=== PATIENT | male | born 1970 | race Caucasian/White ===

== ENCOUNTER → 2016-07-07 | Day surgery (SDC) | payer OTHER ==
[~2016-07-07] MED LIST: CIAL5TAB PO; IBUP600T26 PO; LACTATED RINGER'S 1000 ML INJ 1,000 ML ONE; PROPOFOL 200 MG/20 ML AMP IV ONE
--- NOTE | 2016-07-07 14:26 | GIPROC ---
[facility] [address] [facility], [address] EGD PROCEDURE REPORT EXAM DATE: 07/07/2016 PATIENT NAME: Micheal Alonzo MR #: [id number] BIRTHDATE: 1970 ATTENDING: Debbie Campo MD ORDER #: [id number] SURGICAL GARMENT ASSEMBLER: Naomi Carcamo RN STATUS: outpatient INDICATIONS: The patient is a 46 yr old male here for an EGD due to dyspepsia and heartburn PROCEDURE PERFORMED: EGD w/ biopsy MEDICATIONS: None and Per Anesthesia. TOPICAL ANESTHETIC: none CONSENT: The patient understands the risks and benefits of the procedure and understands that these risks include, but are not limited to: sedation, allergic reaction, infection, perforation and/or bleeding. Alternative means of evaluation and treatment include, among others: physical exam, x-rays, and/or surgical intervention. The patient elects to proceed with this endoscopic procedure. medical equipment was checked for proper function. Hand hygiene and appropriate measures for infection prevention was taken. After the risks, benefits and alternatives of the procedure were thoroughly explained, Informed consent was verified, confirmed and timeout was successfully executed by the treatment team. The patient was anesthetized with topical anesthesia and the EG-2990i ([id number]) and EC-3490Li ([id number]) endoscope was introduced through the mouth and advanced to the second portion of the duodenum. Retroflexed views revealed no abnormalities The gastroscope was then slowly withdrawn and removed. Gastritis Bx from antrum. Esophagitis grade B Bx from EG junction. The endoscopy was otherwise normal. ADVERSE EVENTS: There were no complications. IMPRESSIONS: 1. Gastritis Bx from antrum 2. Esophagitis grade B Bx from EG junction 3. Normal endoscopy otherwise 4. Retroflexed views revealed no abnormalities RECOMMENDATIONS: 1. Await biopsy results. Biopsy results will not be ready for 7-10 days. If you don't hear from us in two weeks, call our office for biopsy results. 2. Anti-reflux regimen 3. Protonix 40mg Q AM 4. Avoid NSAIDS PATIENT CONDITION: stable DISPOSITION: Home REPEAT EXAM: Return as needed for EGD Debbie Campo MD eSigned: Debbie Campo MD 07/07/2016 2:26 PM cc: kayla knapp M.D.
== END | disposition home or self-care (01) ==
LOC: ESDC 11:59
PROVIDERS: ATTEND Hospitalist
DX: R10.13 Epigastric pain (principal); K29.70 Gastritis, unspecified, without bleeding; K20.9 Esophagitis, unspecified
CPT/HCPCS: 00740; 43239; 88305; 88312; J3010; J7120

== ENCOUNTER 2016-10-14 16:02 | Inpatient (IN) | payer OTHER ==
[~2016-10-14] VITALS: Ht 180.3 cm; Wt 163.2 kg
[2016-10-17] MEDS ORDERED: PROT40TA PO (11:36)
[2016-10-20] MEDS ORDERED: INSULIN HUMAN REGULAR 1,000 UNITS/10 ML VIAL SQ PRN (05:30)
[2016-10-20] MEDS ORDERED: SCOPOLAMINE 1.5 MG PATCH T-DERMAL SCH (05:30)
[2016-10-20] MEDS ORDERED: ONDANSETRON HCL 4 MG/2 ML VIAL IV PUSH SCH (05:30)
[2016-10-20] MEDS ORDERED: LACTATED RINGER'S 1000 ML IV PRN (05:30)
[2016-10-20] MEDS ORDERED: POVIDONE IODINE 5% (ANTISEPSIS KIT) 4 APPLICATIONS EACH NARE PRN (05:30)
[2016-10-20] MEDS ORDERED: ceFAZolin 3,000 MG/NS 100 ML (if >120 kg) IV SCH ×2 (05:30)
[2016-10-20] MEDS ORDERED: SODIUM CHLORID 0.9% 500 ML IV PRN (05:30)
[2016-10-20] MEDS ORDERED: CHLORHEXIDINE GLUCONATE 2 % 1 PACK (2 CLOTHS) TOPICAL PRN (05:30)
[2016-10-20] MEDS ORDERED: APREPITANT 40 MG CAP PO SCH (05:30)
[2016-10-20] MEDS ORDERED: METOPROLOL TARTRATE 25 MG TAB PO PRN (05:30)
[2016-10-20] MEDS ORDERED: metroNIDAZOLE 500 MG INJ 100 ML IV SCH (05:30)
[2016-10-20] MEDS ORDERED: ACETAMINOPHEN 1000 MG/100 ML VIAL IV SCH (05:30)
[2016-10-20 06:29] VITALS: BP 136/82; PULSE 103; RESP 18; TEMP 98.8; O2SAT 97
[2016-10-20] MEDS ORDERED: ceFAZolin 2 GM PREMIX 50 ML ONE ×2 (08:47→13:02)
[2016-10-20] MEDS ORDERED: MIDAZOLAM HCL 2 MG/2 ML VIAL ONE (08:51)
[2016-10-20] MEDS ORDERED: BUPIVACAINE/EPINEPHRINE 0.25% 50 ML VIAL INFIL ONE (09:27)
[2016-10-20] MEDS ORDERED: METHYLENE BLUE 100 MG/10 ML VIAL NG ONE (09:50)
[2016-10-20] MEDS ORDERED: LACTATED RINGER'S 1000 ML INJ 2,000 ML IV ONE (12:00)
[2016-10-20] MEDS ORDERED: NEOSTIGMINE 3 MG/3 ML SYR IV ONE (12:00)
[2016-10-20] MEDS ORDERED: PROPOFOL 200 MG/20 ML AMP IV ONE (12:00)
[2016-10-20] MEDS ORDERED: ePHEDrine/NS 25 MG/5 ML SYR IV ONE (12:00)
[2016-10-20] MEDS ORDERED: PHENYLEPH/NS 1000 MCG/10 ML SYR IV ONE (12:00)
[2016-10-20] MEDS: D5-1/2 NS + KCL 20 MEQ INJ 1,000 ML IV SCH ×2 (13:58→20:18)
[2016-10-20] MEDS ORDERED: diphenhydrAMINE HCL ELIXIR 12.5 MG/5 ML CUP PO PRN (14:00)
[2016-10-20] MEDS ORDERED: SODIUM CHLORIDE 0.9% FLUSH 10 ML FLUSH IV FLUSH PRN (14:00)
[2016-10-20] MEDS ORDERED: diphenhydrAMINE HCL 50 MG/ML VIAL IV PRN (14:00)
[2016-10-20] MEDS ORDERED: Post-op Orders (for Pharmacy) MISC OTHER ONE (14:00)
[2016-10-20] MEDS ORDERED: ACETAMINOPHEN 325MG/HYDROcodone 7.5MG/15ML UDC PO PRN (14:00)
[2016-10-20] MEDS ORDERED: ENALAPRILAT 1.25 MG/ML VIAL IV PUSH PRN (14:00)
[2016-10-20] MEDS ORDERED: DO NOT ADM ANY ANTICOAGULANT DRUGS PRN (14:45)
[2016-10-20] MEDS ORDERED: fentaNYL CITRATE 250 MCG/5 ML AMP ONE (14:54)
[2016-10-20] MEDS ORDERED: MORPHINE SULFATE 4 MG/ML INJ ONE (14:55)
[2016-10-20] MEDS ORDERED: *ONDANSETRON 4 MG VIAL PERIprocedural Use ONLY ONE (15:07)
[2016-10-20] MEDS ORDERED: *morphine SULFATE 8 MG/ML PERIprocedure ONLY ONE (15:28)
[2016-10-20] MEDS: METOCLOPRAMIDE HCL 10 MG/2 ML VIAL IV PUSH SCH ×2 (15:45→20:18)
[2016-10-20] MEDS: metroNIDAZOLE 500 MG INJ 100 ML IV SCH ×2 (15:54→23:23)
[2016-10-20] MEDS: RESP: ALBUTEROL 2.5 MG/3 ML NEB (SCH) INH ×2 (15:54→19:46)
[2016-10-20 16:00] VITALS: BP 129/60; PULSE 110; RESP 15; TEMP 96.5; O2SAT 96
[2016-10-20] MEDS ORDERED: NALOXONE HCL 0.4 MG/ML AMP IV PRN (17:15)
[2016-10-20 17:58] VITALS: RESP 16
[2016-10-20] MEDS: MORPHINE SULFATE 30 MG/30 ML PCA IV SCH ×2 (17:58→23:27)
[2016-10-20] MEDS: ENOXAPARIN SODIUM 40 MG/0.4 ML SYRINGE SQ SCH (18:09)
[2016-10-20 19:46] VITALS: O2SAT 96
[2016-10-20 20:00] VITALS: BP 122/69; PULSE 112; RESP 20; TEMP 96.8; O2SAT 93
[2016-10-20] MEDS: SODIUM CHLORIDE 0.9% FLUSH 10 ML FLUSH IV FLUSH SCH (20:17)
[2016-10-20] MEDS: PCA - TOTAL MG MORPHINE DELIVERED PER SHIFT SCH (21:32)
[2016-10-21] VITALS (12 sets, daily range): BP systolic 115–121; BP diastolic 59–72; PULSE 92–110; RESP 16–19; TEMP 96.1–98.7; O2SAT 92–97
[2016-10-21] MEDS: RESP: ALBUTEROL 2.5 MG/3 ML NEB (SCH) INH ×6 (00:44→21:41)
[2016-10-21] MEDS: D5-1/2 NS + KCL 20 MEQ INJ 1,000 ML IV SCH ×3 (04:10→22:25)
[2016-10-21] MEDS: METOCLOPRAMIDE HCL 10 MG/2 ML VIAL IV PUSH SCH ×2 (04:10→08:21)
[2016-10-21] MEDS: PCA - TOTAL MG MORPHINE DELIVERED PER SHIFT SCH ×3 (06:00→22:00)
[2016-10-21 07:01] LABS: AUTOMATED NEUTROPHIL # 6.5 TH/MM3 (1.8-7.7); BASOPHIL % 0.1 % (0.0-2.0); EOSINOPHIL % 0.1 % (0.0-4.0); HEMATOCRIT 39.1 % (39.0-51.0); HEMO FLAGS DIFF FINAL; LYMPH % 8.3 % (9.0-44.0); LYMPHOCYTE # 0.6 TH/MM3 (1.0-4.8); MEAN CORPUSCULAR HGB CONC 34.5 % (32.0-36.0); MONO % 6.6 % (0.0-8.0); NEUT % 84.9 % (16.0-70.0); PLATELET COUNT 163 TH/MM3 (150-450); RED BLOOD COUNT 4.65 MIL/MM3 (4.50-5.90); RED CELL DISTRIBUTION WIDTH 14.6 % (11.6-17.2); WHITE BLOOD COUNT 7.6 TH/MM3 (4.0-11.0)
[2016-10-21 07:23] LABS: BICARBONATE 25.8 MEQ/L (21.0-32.0); MAGNESIUM 2.1 MG/DL (1.5-2.5); POTASSIUM 3.7 MEQ/L (3.5-5.1)
[2016-10-21] MEDS: SODIUM CHLORIDE 0.9% FLUSH 10 ML FLUSH IV FLUSH SCH ×2 (08:05→21:00)
[2016-10-21] MEDS: metroNIDAZOLE 500 MG INJ 100 ML IV SCH (08:21)
[2016-10-21] MEDS: PANTOPRAZOLE SOD 40 MG DELAYED RELEASE TAB PO SCH (08:21)
[2016-10-21] MEDS: MORPHINE SULFATE 30 MG/30 ML PCA IV SCH ×2 (08:31→19:29)
--- NOTE | 2016-10-21 09:24 | HHI.PR ---
Subjective Subjective Notes 46yo male POD#1 Duodenal switch. Sitting up in chair in no acute distress. Voices no GI complaints Objective Vitals/I&O Vital Signs Date Time Temp Pulse Resp B/P Pulse Ox O2 Delivery O2 Flow Rate FiO2 10/21/16 08:31 18 10/21/16 08:00 98.7 98 117/64 92 10/21/16 07:36 Nasal Cannula 3.00 10/21/16 04:15 21 Labs Laboratory Tests Test 10/21/16 06:33 White Blood Count 7.6 Red Blood Count 4.65 Hemoglobin 13.5 Hematocrit 39.1 Mean Corpuscular Volume 84.0 Mean Corpuscular Hemoglobin 29.0 Mean Corpuscular Hemoglobin 34.5 Concent Red Cell Distribution Width 14.6 Platelet Count 163 Mean Platelet Volume 9.7 Neutrophils (%) (Auto) 84.9 Lymphocytes (%) (Auto) 8.3 Monocytes (%) (Auto) 6.6 Eosinophils (%) (Auto) 0.1 Basophils (%) (Auto) 0.1 Neutrophils # (Auto) 6.5 Lymphocytes # (Auto) 0.6 Monocytes # (Auto) 0.5 Eosinophils # (Auto) 0.0 Basophils # (Auto) 0.0 CBC Comment DIFF FINAL Differential Comment Sodium Level 136 Potassium Level 3.7 Chloride Level 103 Carbon Dioxide Level 25.8 Anion Gap 7 Blood Urea Nitrogen 6 Creatinine 0.87 Estimat Glomerular Filtration 95 Rate Random Glucose 130 Calcium Level 7.9 Magnesium Level 2.1 Cardiovascular: Regular Lungs: Clear Abdomen: Post-op tenderness Extremities: Perfused Wound Wound : Wound Location: Abdomen Appearance: Clean & Dry (AKANKSHA drain with small amount of serosanguinous drainage) A/P Assessment and Plan D/C hughes Ok for ice chips for now. Continue with frequent ambulation Discharge Planning Depending on hospital course, may go home tomorrow Kiera Gallegos Oct 21, 2016 09:24
[2016-10-21 12:29] LABS: CALCIUM-PROTEIN CORRECTED 8.3 MG/DL (8.5-10.1)
[2016-10-21] MEDS: ENOXAPARIN SODIUM 40 MG/0.4 ML SYRINGE SQ SCH (17:04)
[2016-10-22] VITALS (10 sets, daily range): BP systolic 102–121; BP diastolic 59–70; PULSE 77–111; RESP 16–20; TEMP 95.5–99.8; O2SAT 92–100
[2016-10-22] MEDS: RESP: ALBUTEROL 2.5 MG/3 ML NEB (SCH) INH ×4 (00:24→12:57)
[2016-10-22] MEDS: PCA - TOTAL MG MORPHINE DELIVERED PER SHIFT SCH ×2 (06:00→14:00)
[2016-10-22] MEDS: D5-1/2 NS + KCL 20 MEQ INJ 1,000 ML IV SCH ×3 (06:53→20:05)
[2016-10-22] MEDS: MORPHINE SULFATE 30 MG/30 ML PCA IV SCH (07:12)
[2016-10-22] MEDS: SODIUM CHLORIDE 0.9% FLUSH 10 ML FLUSH IV FLUSH SCH ×2 (09:00→20:05)
[2016-10-22] MEDS: PANTOPRAZOLE SOD 40 MG DELAYED RELEASE TAB PO SCH (09:01)
[2016-10-22 11:53] LABS: AUTOMATED NEUTROPHIL # 6.1 TH/MM3 (1.8-7.7); BASOPHIL % 0.2 % (0.0-2.0); EOSINOPHIL % 0.4 % (0.0-4.0); HEMO FLAGS DIFF FINAL; LYMPH % 8.7 % (9.0-44.0); LYMPHOCYTE # 0.6 TH/MM3 (1.0-4.8); MEAN CELL VOLUME 84.8 FL (80.0-100.0); MEAN CORPUSCULAR HEMOGLOBIN 28.9 PG (27.0-34.0); MEAN CORPUSCULAR HGB CONC 34.1 % (32.0-36.0); MONO % 7.9 % (0.0-8.0); NEUT % 82.8 % (16.0-70.0); PLATELET COUNT 133 TH/MM3 (150-450); RED BLOOD COUNT 4.36 MIL/MM3 (4.50-5.90); RED CELL DISTRIBUTION WIDTH 14.6 % (11.6-17.2); WHITE BLOOD COUNT 7.4 TH/MM3 (4.0-11.0)
[2016-10-22 12:19] LABS: BICARBONATE 25.3 MEQ/L (21.0-32.0); POTASSIUM 4.2 MEQ/L (3.5-5.1)
[2016-10-22] MEDS: ONDANSETRON HCL 4 MG/2 ML VIAL IV PRN (13:40)
--- NOTE | 2016-10-22 16:49 | HHI.PR ---
Subjective Subjective Notes Pt comfortable no cp no sob no N/V Objective Vitals/I&O Vital Signs Date Time Temp Pulse Resp B/P Pulse Ox O2 Delivery O2 Flow Rate FiO2 10/22/16 16:00 97.0 87 16 102/64 96 10/22/16 10:04 21 10/21/16 07:36 Nasal Cannula 3.00 Labs Laboratory Tests Test 10/22/16 10:48 White Blood Count 7.4 Red Blood Count 4.36 Hemoglobin 12.6 Hematocrit 37.0 Mean Corpuscular Volume 84.8 Mean Corpuscular Hemoglobin 28.9 Mean Corpuscular Hemoglobin 34.1 Concent Red Cell Distribution Width 14.6 Platelet Count 133 Mean Platelet Volume 10.6 Neutrophils (%) (Auto) 82.8 Lymphocytes (%) (Auto) 8.7 Monocytes (%) (Auto) 7.9 Eosinophils (%) (Auto) 0.4 Basophils (%) (Auto) 0.2 Neutrophils # (Auto) 6.1 Lymphocytes # (Auto) 0.6 Monocytes # (Auto) 0.6 Eosinophils # (Auto) 0.0 Basophils # (Auto) 0.0 CBC Comment DIFF FINAL Differential Comment Sodium Level 138 Potassium Level 4.2 Chloride Level 105 Carbon Dioxide Level 25.3 Anion Gap 8 Blood Urea Nitrogen 4 Creatinine 0.77 Estimat Glomerular Filtration 110 Rate Random Glucose 104 Calcium Level 8.2 Lungs: Clear Abdomen: Post-op tenderness Extremities: Perfused Narrative Exam taina serosang Wound Wound : Wound Location: Abdomen Appearance: Clean & Dry A/P Assessment and Plan PT S/P Lap DS Doing well Phase 1 diet started ambulate in hallway Possible D/C home tomorrow Nilton Downing MD Oct 22, 2016 16:49
[2016-10-22] MEDS: ENOXAPARIN SODIUM 40 MG/0.4 ML SYRINGE SQ SCH (17:44)
[2016-10-22] MEDS: METOCLOPRAMIDE HCL 10 MG/2 ML VIAL IV PUSH PRN (17:53)
[2016-10-22] MEDS: ACETAMINOPHEN 325MG/HYDROcodone 7.5MG/15ML UDC PO PRN (20:01)
[2016-10-23] MEDS: METOCLOPRAMIDE HCL 10 MG/2 ML VIAL IV PUSH PRN (01:55)
[2016-10-23] MEDS: ACETAMINOPHEN 325MG/HYDROcodone 7.5MG/15ML UDC PO PRN ×2 (01:55→08:29)
[2016-10-23] MEDS: D5-1/2 NS + KCL 20 MEQ INJ 1,000 ML IV SCH (05:48)
[2016-10-23 08:00] VITALS: BP 119/62; PULSE 74; RESP 16; TEMP 97.7; O2SAT 94
[2016-10-23] MEDS: PANTOPRAZOLE SOD 40 MG DELAYED RELEASE TAB PO SCH (08:28)
[2016-10-23] MEDS: ONDANSETRON HCL 4 MG/2 ML VIAL IV PRN (08:29)
[2016-10-23] MEDS: SODIUM CHLORIDE 0.9% FLUSH 10 ML FLUSH IV FLUSH SCH (08:29)
--- NOTE | 2016-10-23 11:39 | HHI.DS ---
Discharge Summary Admission Date Oct 20, 2016 at 05:08 Discharge Date: Oct 23, 2016 Admitting Diagnosis Morbid obesity Procedures Laparoscopic Duodenal Switch Brief History 46yo male who presented for elective Duodenal Switch for Morbid Obesity complicated by GERD CBC/BMP: 10/22/16 1048 10/22/16 1048 Significant Findings Laboratory Tests Test 10/21/16 10/22/16 06:33 10:48 Neutrophils (%) (Auto) 84.9 % 82.8 % (16.0-70.0) (16.0-70.0) Lymphocytes (%) (Auto) 8.3 % 8.7 % (9.0-44.0) (9.0-44.0) Lymphocytes # (Auto) 0.6 TH/MM3 0.6 TH/MM3 (1.0-4.8) (1.0-4.8) Blood Urea Nitrogen 6 MG/DL (7-18) 4 MG/DL (7-18) Random Glucose 130 MG/DL (74-106) Calcium Level 7.9 MG/DL 8.2 MG/DL (8.5-10.1) (8.5-10.1) Protein Corrected Calcium 8.3 MG/DL (8.5-10.1) Red Blood Count 4.36 MIL/MM3 (4.50-5.90) Hemoglobin 12.6 GM/DL (13.0-17.0) Hematocrit 37.0 % (39.0-51.0) Platelet Count 133 TH/MM3 (150-450) PE at Discharge Pt up ambulating halls in no acute distress. Cardiac: RRR Lungs: Clear to auscultation Abd: post op tenderness. taina serosang Extremities: perfused Hospital Course Procedure was performed without complication. Pt was discharged home in stable condition Pt Condition on Discharge: Stable Discharge Disposition: Discharge Home Discharge Instructions DIET: Follow Instructions for: Bariatric Surgery Diet Activities you can perform: Shower Only-No Bath Activities to Avoid: Strenuous Activity Continued Medications: Pantoprazole (Protonix) 40 Mg Tab 40 MG PO DAILY Reflux #30 Ref 0 TAB Kiera Gallegos Oct 23, 2016 11:39
[2016-10-23 12:00] VITALS: BP 128/68; PULSE 82; RESP 16; TEMP 97.1; O2SAT 96
== END 2016-10-23 13:37 | disposition home or self-care (01) | DRG 621 ==
LOC: HSDI 10-20 05:08 → N07B 10-20 16:24
PROVIDERS: ADMIT Surgery; ATTEND Surgery
PROC: 0D194ZB Bypass Duodenum to Ileum, Percutaneous Endoscopic Approach (ICD-10-PCS; principal; 2016-10-20 08:54)
DX: E66.01 Morbid (severe) obesity due to excess calories (principal); G47.33 Obstructive sleep apnea (adult) (pediatric); K21.0 Gastro-esophageal reflux disease with esophagitis; K21.9 Gastro-esophageal reflux disease without esophagitis; Z87.442 Personal history of urinary calculi; Z68.43 Body mass index [BMI] 50.0-59.9, adult
CPT/HCPCS: 80048; 82150; 83735; 84155; 85025; 94150; 94640; 94664; J0131; J0690; J1650; J2250; J2270; J2370; J2405; J2710; J2765; J3010; J3480; J7120; J7613; J8501

== ENCOUNTER 2016-11-09 20:16 | Emergency (ER) | payer OTHER ==
[~2016-11-09] VITALS: Ht 180.3 cm; Wt 145.0 kg
[~2016-11-09 20:16] MED LIST changes: -CIAL5TAB PO; -IBUP600T26 PO; -LACTATED RINGER'S 1000 ML INJ 1,000 ML ONE; -PROPOFOL 200 MG/20 ML AMP IV ONE; +PROT40TA PO
[2016-11-09 20:21] VITALS: BP 132/91; PULSE 104; RESP 16; TEMP 97.8; O2SAT 98
--- NOTE | 2016-11-09 20:55 | PD ---
HPI . Nausea, vomiting and chest pain for 2 days Chief Complaint: GI Complaint Time Seen by Provider: 20:55 Travel History International Travel<30 days: No Contact w/Intl Traveler<30days: No Traveled to known affect area: No History of Present Illness HPI 46-year-old male with recent bariatric surgery performed by Dr. Kemp on October 20, 2016 here with complaints of nausea, vomiting and chest pain for the past 2 days. Patient says that he had a surgery on October 20 and had some intermittent nausea, but that had subsided. He says within the past 2 days his symptoms are increasing. He reports that he's had nausea that is interfering with him eating. He reports that he's vomited 3 times yesterday and 3-4 times today. Every time he tries to drink water, he feels nauseous. He also reports that he's had this chest pain and pressure in the left chest wall radiating into his left arm that also started about the same time. He is currently still on a pured diet and says that overall he tolerated it well until 2 days ago. He denies any shortness of breath or diaphoresis. He is accompanied by his significant other. PFSH Past Medical History Cancer: No Cardiovascular Problems: No Diabetes: No Diminished Hearing: No Endocrine: No Genitourinary: No Hepatitis: No Hiatal Hernia: No Immune Disorder: No Musculoskeletal: No Neurologic: No Psychiatric: No Respiratory: No Immunizations Current: Yes Sleep Apnea: Yes (wears cpap occassionally) Thyroid Disease: No Past Surgical History Abdominal Surgery: Yes (CHOLECYSTECTOMY) AICD: No Cardiac Surgery: No Cholecystectomy: Yes Ear Surgery: No Endocrine Surgery: No Eye Surgery: No Genitourinary Surgery: No Gynecologic Surgery: No Joint Replacement: No Oral Surgery: Yes (wisdom teeth) Pacemaker: No Thoracic Surgery: No Other Surgery: Yes (wisdom teeth removed) Social History Alcohol Use: No Tobacco Use: No Substance Use: No Allergies-Medications (Allergen,Severity, Reaction): Coded Allergies: No Known Allergies (Unverified , 11/09/16) Reported Meds & Prescriptions Reported Meds & Active Scripts Active Phenergan Supp (Promethazine HCl) 25 Mg Supp 25 Mg RECTAL Q6H PRN Zofran Odt (Ondansetron Odt) 8 Mg Tab 8 Mg SL Q8H PRN Reported Protonix (Pantoprazole Sodium) 40 Mg Tab 40 Mg PO DAILY Review of Systems General / Constitutional: No: Fever Eyes: No: Visual changes HENT: No: Headaches Cardiovascular: Positive: Chest Pain or Discomfort Respiratory: No: Shortness of Breath Gastrointestinal: Positive: Nausea, Vomiting, No: Abdominal Pain Genitourinary: No: Dysuria Musculoskeletal: No: Pain Skin: No Rash Neurologic: No: Weakness Psychiatric: No: Depression Endocrine: No: Polydipsia Hematologic/Lymphatic: No: Easy Bruising Physical Exam Narrative GENERAL: AAO x 3, no acute distress, Well-nourished, well-developed patient.morbidly obese SKIN: Warm and dry. No visible rashes or bruising. HEAD: Normocephalic and atraumatic. EYES: No scleral icterus. No injection or drainage. EOM intact, PERRLA ENT: No nasal drainage noted. Mucous membranes pink. Airway patent. NECK: Supple, trachea midline. No JVD. CARDIOVASCULAR: Regular rate and rhythm without murmurs, gallops, or rubs. no reproducible chest pain on exam RESPIRATORY: Breath sounds equal bilaterally. No accessory muscle use. No rhonchi or rales. GASTROINTESTINAL: Abdomen soft, non-tender, nondistended. no rebound or guarding EXTREMITIES: No cyanosis or edema. BACK: Nontender without obvious deformity. No CVA tenderness. NEURO: CN II-12 intact, spectrographer strength normal b/l, UE and LE 5/5, no focal deficits PSYCH: AAO x 3, normal affect. Data Data Last Documented VS Vital Signs Date Time Temp Pulse Resp B/P Pulse Ox O2 Delivery O2 Flow Rate FiO2 11/09/16 21:16 174/89 11/09/16 21:09 98 Room Air 11/09/16 20:21 97.8 104 16 Orders Electrocardiogram (11/09/16 21:03) Ckmb (Isoenzyme) Profile (11/09/16 21:03) Complete Blood Count With Diff (11/09/16 21:03) Comprehensive Metabolic Panel (11/09/16 21:03) Magnesium (Mg) (11/09/16 21:03) Prothrombin Time / Inr (Pt) (11/09/16 21:03) Act Partial Throm Time (Ptt) (11/09/16 21:03) Troponin I (11/09/16 21:03) Lipase (11/09/16 21:03) Chest, Single Ap (11/09/16 21:03) Ecg Monitoring (11/09/16 21:03) Bilateral Bp Monitoring (11/09/16 21:03) Iv Access Insert/Monitor (11/09/16 21:03) Oximetry (11/09/16 21:03) Oxygen Administration (11/09/16 21:03) Sodium Chloride 0.9% Flush (Ns Flush) (11/09/16 21:15) Ct Abd/Pel W Iv Contrast(Rout) (11/09/16 ) Iohexol 350 Inj (Omnipaque 350 Inj) (11/09/16 22:58) Labs Laboratory Tests Test 11/09/16 21:16 White Blood Count 6.2 TH/MM3 Red Blood Count 5.18 MIL/MM3 Hemoglobin 14.4 GM/DL Hematocrit 43.4 % Mean Corpuscular Volume 83.8 FL Mean Corpuscular Hemoglobin 27.8 PG Mean Corpuscular Hemoglobin 33.1 % Concent Red Cell Distribution Width 14.7 % Platelet Count 185 TH/MM3 Mean Platelet Volume 10.8 FL Neutrophils (%) (Auto) 67.0 % Lymphocytes (%) (Auto) 20.8 % Monocytes (%) (Auto) 8.4 % Eosinophils (%) (Auto) 3.6 % Basophils (%) (Auto) 0.2 % Neutrophils # (Auto) 4.2 TH/MM3 Lymphocytes # (Auto) 1.3 TH/MM3 Monocytes # (Auto) 0.5 TH/MM3 Eosinophils # (Auto) 0.2 TH/MM3 Basophils # (Auto) 0.0 TH/MM3 CBC Comment DIFF FINAL Differential Comment Prothrombin Time 12.0 SEC Prothromb Time International 1.1 RATIO Ratio Activated Partial 29.4 SEC Thromboplast Time Sodium Level 138 MEQ/L Potassium Level 3.8 MEQ/L Chloride Level 101 MEQ/L Carbon Dioxide Level 21.8 MEQ/L Anion Gap 15 MEQ/L Blood Urea Nitrogen 9 MG/DL Creatinine 0.77 MG/DL Estimat Glomerular Filtration 110 ML/MIN Rate Random Glucose 76 MG/DL Calcium Level 8.8 MG/DL Magnesium Level 2.1 MG/DL Total Bilirubin 0.8 MG/DL Aspartate Amino Transf 38 U/L (AST/SGOT) Alanine Aminotransferase 59 U/L (ALT/SGPT) Alkaline Phosphatase 85 U/L Total Creatine Kinase 51 U/L Troponin I LESS THAN 0.02 NG/ML Total Protein 7.5 GM/DL Albumin 3.8 GM/DL Lipase 433 U/L [facility] Medical Decision Making Medical Screen Exam Complete: Yes Emergency Medical Condition: Yes Medical Record Reviewed: Yes Differential Diagnosis gastroenteritis, ACS, angina, pancreatitis, cholelithiasis, gastritis Narrative Course 46 yr old male here with nausea, vomiting and chest pain x 2 days. IV access obtained. Labs ordered. Lipase elevated at 433. CT abdomen and pelvis ordered. Troponin negative. Case discussed with Dr. Arita. She will determine patient's disposition pending completed workup. Scripts Promethazine Supp (Phenergan Supp)25 Mg Supp25 Mg RECTAL Q6H PRN (NAUSEA OR VOMITING) #15 SUPP Ref 0 Prov:Eliana Arita MD 11/09/16 Ondansetron Odt (Zofran Odt)8 Mg Tab8 Mg SL Q8H PRN (NAUSEA OR VOMITING) #15 TAB Ref 0 Prov:Eliana Arita MD 11/09/16 Condition: Stable Didi Lindsey Nov 09, 2016 20:55
[2016-11-09 21:09] VITALS: O2SAT 98
[2016-11-09] MEDS ORDERED: SODIUM CHLORIDE 0.9% FLUSH 10 ML FLUSH IVF PRN (21:15)
[2016-11-09 21:16] VITALS: BP 174/89
--- NOTE | 2016-11-09 21:22 | RADRPT ---
EXAM DATE/TIME: 11/09/2016 21:05 [facility] COMPARISON: CHEST SINGLE AP, December 23, 2015, 0:39. INDICATIONS : Chest pain left upper chest MEDICAL HISTORY : None. SURGICAL HISTORY : None. ENCOUNTER: Initial ACUITY: 2 days PAIN SCORE: 9/10 LOCATION: chest FINDINGS: A single view of the chest demonstrates the lungs to be symmetrically aerated without evidence of mas s, infiltrate or effusion. The cardiomediastinal contours are unremarkable. Osseous structures are intact. CONCLUSION: No acute disease. No significant change has occurred. Trell Cerrato MD on November 09, 2016 at 21:20 Board Certified Radiologist. This report was verified electronically.
[2016-11-09 21:50] LABS: AUTOMATED NEUTROPHIL # 4.2 TH/MM3 (1.8-7.7); BASOPHIL % 0.2 % (0.0-2.0); EOSINOPHIL # 0.2 TH/MM3 (0-0.4); EOSINOPHIL % 3.6 % (0.0-4.0); HEMATOCRIT 43.4 % (39.0-51.0); HEMO FLAGS DIFF FINAL; LYMPH % 20.8 % (9.0-44.0); LYMPHOCYTE # 1.3 TH/MM3 (1.0-4.8); MEAN CELL VOLUME 83.8 FL (80.0-100.0); MEAN CORPUSCULAR HEMOGLOBIN 27.8 PG (27.0-34.0); MEAN CORPUSCULAR HGB CONC 33.1 % (32.0-36.0); MONO % 8.4 % (0.0-8.0); PLATELET COUNT 185 TH/MM3 (150-450); RED BLOOD COUNT 5.18 MIL/MM3 (4.50-5.90); RED CELL DISTRIBUTION WIDTH 14.7 % (11.6-17.2); WHITE BLOOD COUNT 6.2 TH/MM3 (4.0-11.0)
[2016-11-09 22:04] LABS: APTT (PATIENT) 29.4 SEC (24.3-30.1); INTERNATIONAL NORMALIZED RATIO 1.1 RATIO
[2016-11-09 22:14] LABS: ALKALINE PHOSPHATASE 85 U/L (45-117); ALT (GPT) 59 U/L (12-78); ANION GAP 15 MEQ/L (5-15); AST (GOT) 38 U/L (15-37); BICARBONATE 21.8 MEQ/L (21.0-32.0); BLOOD UREA NITROGEN 9 MG/DL (7-18); CHLORIDE 101 MEQ/L (98-107); GLOMERULAR FILTRATION RATE 110 ML/MIN (>89); MAGNESIUM 2.1 MG/DL (1.5-2.5); POTASSIUM 3.8 MEQ/L (3.5-5.1); SODIUM (NA) 138 MEQ/L (136-145); TOTAL BILIRUBIN ADULT 0.8 MG/DL (0.2-1.0)
[2016-11-09 22:20] LABS: CREATINE KINASE 51 U/L (39-308)
[2016-11-09] MEDS ORDERED: IOHEXOL 350 MG/ML 10 ML VIAL (for RAD DIAG) IV ONE (22:58)
--- NOTE | 2016-11-09 23:13 | RADRPT ---
EXAM DATE/TIME: 11/09/2016 22:56 [facility] COMPARISON: No previous studies available for comparison. INDICATIONS : Duodenal switch surgery on 10/20/16. Nausea, vomiting and left upper quadrant pain. IV CONTRAST: 95 cc Omnipaque 350 (iohexol) IV ORAL CONTRAST: No oral contrast ingested. RADIATION DOSE: 27.50 CTDIvol (mGy) ; Patient body habitus MEDICAL HISTORY : Gastroesophageal reflux disease. SURGICAL HISTORY : Cholecystectomy. ENCOUNTER: Initial ACUITY: 2 weeks PAIN SCALE: 5/10 LOCATION: Bilateral abdomen TECHNIQUE: Volumetric scanning of the abdomen and pelvis was performed. Using automated exposure control and ad justment of the mA and/or kV according to patient size, radiation dose was kept as low as reasonably achievable to obtain optimal diagnostic quality images. DICOM format image data is available electro nically for review and comparison. FINDINGS: Lung bases are clear. Osseous structures are intact. Patient is status post cholecystectomy. No pleur al or pericardial effusions are seen. There is splenomegaly up to 16.5 cm in AP dimension. Pancreas, adrenals, kidneys are unremarkable. No aneurysm. Urinary bladder, prostate, large bowel unremarkable. Appendix is normal. There is evidence of previous small bowel surgery with an anastomotic staple ya e in the right midabdomen. There is also a staple line along the greater curvature of the stomach and at the level of the proximal duodenum with adjacent stranding the periduodenal fat. There is an anas tomosis with a small bowel loop in the right upper quadrant at this level. There is no evidence for f ree fluid or free air. No evidence for abscess. CONCLUSION: 1. Post surgical changes without evidence for abscess or free air. 2. Splenomegaly. Arslan Cramer MD on November 09, 2016 at 23:09 Board Certified Radiologist. This report was verified electronically.
[2016-11-09] MEDS ORDERED: ZOFR8TAB4 SL (23:40)
[2016-11-09] MEDS ORDERED: PROM1SUP7 RECTAL (23:40)
--- NOTE | 2016-11-09 23:40 | PD ---
Data Data Last Documented VS Vital Signs Date Time Temp Pulse Resp B/P Pulse Ox O2 Delivery O2 Flow Rate FiO2 11/09/16 21:16 174/89 11/09/16 21:09 98 Room Air 11/09/16 20:21 97.8 104 16 Orders Electrocardiogram (11/09/16 21:03) Ckmb (Isoenzyme) Profile (11/09/16 21:03) Complete Blood Count With Diff (11/09/16 21:03) Comprehensive Metabolic Panel (11/09/16 21:03) Magnesium (Mg) (11/09/16 21:03) Prothrombin Time / Inr (Pt) (11/09/16 21:03) Act Partial Throm Time (Ptt) (11/09/16 21:03) Troponin I (11/09/16 21:03) Lipase (11/09/16 21:03) Chest, Single Ap (11/09/16 21:03) Ecg Monitoring (11/09/16 21:03) Bilateral Bp Monitoring (11/09/16 21:03) Iv Access Insert/Monitor (11/09/16 21:03) Oximetry (11/09/16 21:03) Oxygen Administration (11/09/16 21:03) Sodium Chloride 0.9% Flush (Ns Flush) (11/09/16 21:15) Ct Abd/Pel W Iv Contrast(Rout) (11/09/16 ) Iohexol 350 Inj (Omnipaque 350 Inj) (11/09/16 22:58) Labs Laboratory Tests Test 11/09/16 21:16 White Blood Count 6.2 TH/MM3 Red Blood Count 5.18 MIL/MM3 Hemoglobin 14.4 GM/DL Hematocrit 43.4 % Mean Corpuscular Volume 83.8 FL Mean Corpuscular Hemoglobin 27.8 PG Mean Corpuscular Hemoglobin 33.1 % Concent Red Cell Distribution Width 14.7 % Platelet Count 185 TH/MM3 Mean Platelet Volume 10.8 FL Neutrophils (%) (Auto) 67.0 % Lymphocytes (%) (Auto) 20.8 % Monocytes (%) (Auto) 8.4 % Eosinophils (%) (Auto) 3.6 % Basophils (%) (Auto) 0.2 % Neutrophils # (Auto) 4.2 TH/MM3 Lymphocytes # (Auto) 1.3 TH/MM3 Monocytes # (Auto) 0.5 TH/MM3 Eosinophils # (Auto) 0.2 TH/MM3 Basophils # (Auto) 0.0 TH/MM3 CBC Comment DIFF FINAL Differential Comment Prothrombin Time 12.0 SEC Prothromb Time International 1.1 RATIO Ratio Activated Partial 29.4 SEC Thromboplast Time Sodium Level 138 MEQ/L Potassium Level 3.8 MEQ/L Chloride Level 101 MEQ/L Carbon Dioxide Level 21.8 MEQ/L Anion Gap 15 MEQ/L Blood Urea Nitrogen 9 MG/DL Creatinine 0.77 MG/DL Estimat Glomerular Filtration 110 ML/MIN Rate Random Glucose 76 MG/DL Calcium Level 8.8 MG/DL Magnesium Level 2.1 MG/DL Total Bilirubin 0.8 MG/DL Aspartate Amino Transf 38 U/L (AST/SGOT) Alanine Aminotransferase 59 U/L (ALT/SGPT) Alkaline Phosphatase 85 U/L Total Creatine Kinase 51 U/L Troponin I LESS THAN 0.02 NG/ML Total Protein 7.5 GM/DL Albumin 3.8 GM/DL Lipase 433 U/L MDM Supervised Visit with ASHUTOSH: Yes Narrative Course I, Dr. Arita, have reviewed the advance practice practioner's documentation and am in agreement, met with the patient face to face, made the diagnosis, and the medical decision making was done by me. *My assessment and Findings: 46-year-old male status post duodenal switch surgery by Dr. Kemp on 10/20/16 here with 2 days of nausea, vomiting, epigastric abdominal pain radiating up into the chest. Abdominal examination is overall benign, he does have slight epigastric tenderness palpation without rebound or guarding. Exam is certainly limited due to his body habitus. Differential includes ACS, gastritis, pancreatitis, hepatobiliary pathology, anastomotic leak, electrolyte abnormality or dehydration. Twelve-lead EKG and laboratory workup notable for lipase in the 400s, otherwise unremarkable. CT abdomen and pelvis was benign other than splenomegaly. The pancreatitis is likely what is causing patient's symptoms. This was discussed with him. He ultimately would like to go home, preferring not to be admitted. Discussed clear liquid diet for 24 hours for bowel rest. Zofran and Phenergan as needed for nausea and vomiting. Follow-up with Dr. Castro by phone tomorrow for an update, and return to the emergency department for the warning signs discussed. Diagnosis Primary Impression: Pancreatitis Qualified Code: K85.90 - Acute pancreatitis without infection or necrosis, unspecified pancreatitis type Referrals: Nilton Downing MD 1 day Additional Instruction: Clear liquid diet for 24 hours as discussed. Nausea medications as needed. Follow-up with Dr. Justo segovia tomorrow by phone as discussed. Med/Other Pt SpecificInfo: Prescription(s) given Scripts Promethazine Supp (Phenergan Supp)25 Mg Supp25 Mg RECTAL Q6H PRN (NAUSEA OR VOMITING) #15 SUPP Ref 0 Prov:Eliana Arita MD 11/09/16 Ondansetron Odt (Zofran Odt)8 Mg Tab8 Mg SL Q8H PRN (NAUSEA OR VOMITING) #15 TAB Ref 0 Prov:Eliana Arita MD 11/09/16 Disposition: 01 DISCHARGE HOME Condition: Stable Eliana Arita MD Nov 09, 2016 23:40
--- NOTE | 2016-11-10 16:28 | EKG ---
Date Performed: 11/09/2016 Time Performed: 21:07:28 PTAGE: 46 years EKG: Sinus rhythm WITH OCCASIONAL VENTRICULAR PREMATURE COMPLEXES BORDERLINE ECG PREVIOUS TRACING : 12/23/2015 00.58 Since previous tracing, no significant change noted DOCTOR: Paul Andrade Interpretating Date/Time 11/10/2016 16:27:18
== END 2016-11-09 23:49 | disposition home or self-care (01) ==
LOC: NEPE 20:16
DX: K85.90 Acute pancreatitis without necrosis or infection, unspecified (principal); Z90.49 Acquired absence of other specified parts of digestive tract
CPT/HCPCS: 71010; 74177; 80053; 82550; 83690; 83735; 84484; 85025; 85610; 85730; 93005; 99285; Q9967

== ENCOUNTER → 2016-11-26 | Day surgery (SDC) | payer OTHER ==
[~2016-11-26] MED LIST changes: +BACT800T5 PO; +COLA100C PO; +LACTATED RINGER'S 1000 ML INJ 1,000 ML ONE; +MILKSUS PO; +MIRA3350 PO; +PROM1SUP7 RECTAL; +PROPOFOL 200 MG/20 ML AMP IV ONE; +ZOFR8TAB4 SL
--- NOTE | 2016-11-26 14:05 | GIPROC ---
[facility] [address] [facility], [address] EGD WITH DILATION PROCEDURE REPORT EXAM DATE: 11/26/2016 PATIENT NAME: Micheal Alonzo MR#: [id number] BIRTHDATE: 1970 ATTENDING: Anna Key MD ORDER #: [id number] ROPE TWISTING MACHINE OPERATOR: Coral Booth RN STATUS: outpatient INDICATIONS: The patient is a 46 yr old male here for an EGD with dilation due to dysphagia PROCEDURE PERFORMED: EGD w/ balloon dilation of esophagus MEDICATIONS: None and Per Anesthesia. TOPICAL ANESTHETIC: CONSENT: The patient understands the risks and benefits of the procedure and understands that these risks include, but are not limited to: sedation, allergic reaction, infection, perforation and/or bleeding. Alternative means of evaluation and treatment include, among others: physical exam, x-rays, and/or surgical intervention. The patient elects to proceed with this endoscopic procedure. medical equipment was checked for proper function. Hand hygiene and appropriate measures for infection prevention was taken. After the risks, benefits and alternatives of the procedure were thoroughly explained, Informed consent was verified, confirmed and timeout was successfully executed by the treatment team. The patient was anesthetized with topical anesthesia and the EC-2990i ([id number]) endoscope was introduced through the mouth and advanced to the anastomosis. The instrument was slowly withdrawn as the mucosa was fully examined. ESOPHAGUS: The mucosa of the esophagus appeared normal. STOMACH: Gastro illeal anastomosis with erythema and adema. Stricture at the anastomosis, did not allow passage of scope. Dilated with a CRE balloon from 10mm to 12mm using hydrostatic pressures from 3 Miguel to 8 Miguel. Good response to dilation. Dilation was performed at . DILATOR: SIZE(S): RESISTANCE: HEME: APPEARANCE: Dilator: Balloon over guidewire Size(s): 10mm to 12mm COMMENT: Retroflexed views revealed no abnormalities ADVERSE EVENTS: There were no complications. IMPRESSIONS: 1. The esophagus appeared normal 2. Gastro illeal anastomosis with erythema and adema. Stricture at the anastomosis, did not allow passage of scope. Dilated with a CRE balloon from 10mm to 12mm using hydrostatic pressures from 3 Miguel to 8 Miguel. Good response to dilation 3. Retroflexed views revealed no abnormalities RECOMMENDATIONS: 1. Anti-reflux regimen 2. Continue PPI 3. Reglan 10 mg tid ac REPEAT EXAM: Return 3 months EGD with dilatation Anna Key MD eSigned: Anna Key MD 11/26/2016 2:04 PM cc: Anna Finn [facility] Home For Incurablesfatimah Downing M.D. PATIENT NAME: Micheal Alonzo MR#: [id number]
== END | disposition home or self-care (01) ==
LOC: ESDC 12:28
PROVIDERS: ATTEND Internal Medicine Gastroenterology
DX: R13.10 Dysphagia, unspecified (principal); K91.89 Other postprocedural complications and disorders of digestive system; Z98.84 Bariatric surgery status
CPT/HCPCS: 00740; 43245; C1726; J3010; J7120

== ENCOUNTER 2016-12-03 12:35 | Emergency (ER) | payer OTHER ==
[~2016-12-03] VITALS: Ht 180.3 cm; Wt 140.0 kg
[~2016-12-03 12:35] MED LIST changes: -BACT800T5 PO; -COLA100C PO; -LACTATED RINGER'S 1000 ML INJ 1,000 ML ONE; -MILKSUS PO; -MIRA3350 PO; -PROPOFOL 200 MG/20 ML AMP IV ONE
[2016-12-03 12:37] VITALS: BP 141/81; PULSE 107; RESP 16; TEMP 98.7; O2SAT 98
--- NOTE | 2016-12-03 13:06 | PD ---
Physical Exam Date Seen by Provider: Dec 03, 2016 Time Seen by Provider: 13:06 Narrative 46 yo male here for evaluation of abdominal pain, constipation and dark starry stools. Going on for 10 days. No relief with OTC. No other medical issues. Vitals are stable in triage. Awaiting bed placement. Data Data Last Documented VS Vital Signs Date Time Temp Pulse Resp B/P (MAP) Pulse Ox O2 Delivery O2 Flow Rate FiO2 12/03/16 12:37 98.7 107 16 141/81 (101) 98 Orders Orders Complete Blood Count With Diff (12/03/16 13:03) Comprehensive Metabolic Panel (12/03/16 13:03) Lipase (12/03/16 13:03) Prothrombin Time / Inr (Pt) (12/03/16 13:03) Act Partial Throm Time (Ptt) (12/03/16 13:03) Urinalysis - C+S If Indicated (12/03/16 13:03) Abdomen, Flat & Upright (12/03/16 ) MDM Medical Record Reviewed: Yes Supervised Visit with ASHUTOSH: No Luciano Rodriguez Dec 03, 2016 13:06
[2016-12-03 14:07] LABS: AUTOMATED NEUTROPHIL # 4.5 TH/MM3 (1.8-7.7); BASOPHIL % 0.1 % (0.0-2.0); EOSINOPHIL # 0.1 TH/MM3 (0-0.4); EOSINOPHIL % 1.8 % (0.0-4.0); HEMATOCRIT 46.5 % (39.0-51.0); HEMO FLAGS DIFF FINAL; LYMPH % 15.5 % (9.0-44.0); LYMPHOCYTE # 0.9 TH/MM3 (1.0-4.8); MEAN CELL VOLUME 83.3 FL (80.0-100.0); MEAN CORPUSCULAR HEMOGLOBIN 27.9 PG (27.0-34.0); MEAN CORPUSCULAR HGB CONC 33.4 % (32.0-36.0); MONO % 7.6 % (0.0-8.0); PLATELET COUNT 141 TH/MM3 (150-450); RED BLOOD COUNT 5.58 MIL/MM3 (4.50-5.90)
[2016-12-03 14:11] LABS: APTT (PATIENT) 28.7 SEC (24.3-30.1); PROTHROMBIN TIME - PATIENT 11.2 SEC (9.8-11.6)
[2016-12-03 14:14] LABS: BLOOD, URINE NEG (NEG); GLUCOSE,URINE NEG (NEG); HYALINE CAST, URINE 1 /lpf (RARE); KETONE, URINE 40 mg/dL (NEG); MUCUS URINE MOD /lpf (OCC); NITRITE,URINE NEG (NEG); SQUAMOUS EPITHELIAL CELL URINE 6 /hpf (0-5); TRANSITIONAL EPI CELLS, URINE <1 /hpf; URINE COLOR DARK-YELLOW (YELLW/STRAW)
[2016-12-03] MEDS ORDERED: MINERAL OIL ENEMA 118 ML BTL RECTAL ONE (14:15)
[2016-12-03 14:16] LABS: COMMENT (UR) CULTURE INDICATED; CULTURE IF INDICATED CULTURE INDICATED
[2016-12-03 14:20] LABS: ANION GAP 12 MEQ/L (5-15); AST (GOT) 55 U/L (15-37); BICARBONATE 29.2 MEQ/L (21.0-32.0); BLOOD UREA NITROGEN 8 MG/DL (7-18); CHLORIDE 96 MEQ/L (98-107); GLOMERULAR FILTRATION RATE 105 ML/MIN (>89); SODIUM (NA) 137 MEQ/L (136-145)
[2016-12-03 14:21] LABS: ALT (GPT) 78 U/L (12-78)
[2016-12-03 14:24] LABS: ALKALINE PHOSPHATASE 98 U/L (45-117); TOTAL BILIRUBIN ADULT 1.4 MG/DL (0.2-1.0)
--- NOTE | 2016-12-03 14:24 | RADRPT ---
EXAM DATE/TIME: 12/03/2016 13:19 [facility] COMPARISON: No previous studies available for comparison. INDICATIONS : Constipation one week. Pain in abdomen. Duodenal switch surgery on 10/20/16. MEDICAL HISTORY : Gastroesophageal reflux disease SURGICAL HISTORY : Cholecystectomy. ENCOUNTER: Initial ACUITY: 1 week PAIN SCORE: 5/10 LOCATION: Bilateral Abdomen FINDINGS: Radiographic contrast is present in the colon. Minimal colonic gas is evident. Scattered air-fluid levels are noted. There is no free air. The portion of the bony skeleton visualized is unremarkable. CONCLUSION: Minimal contrast in sigmoid and rectum otherwise negative.. Yamil Ty MD FACR on December 03, 2016 at 14:21 Board Certified Radiologist. This report was verified electronically.
[2016-12-03] MEDS ORDERED: MIRA3350 PO (15:12)
[2016-12-03] MEDS ORDERED: MILKSUS PO (15:12)
[2016-12-03] MEDS ORDERED: COLA100C PO (15:12)
--- NOTE | 2016-12-03 15:12 | PD ---
HPI Chief Complaint: GI Complaint Time Seen by Provider: 13:45 Travel History International Travel<30 days: No Contact w/Intl Traveler<30days: No Traveled to known affect area: No History of Present Illness HPI This is a 46-year-old male who had a laparoscopic duodenal switch done by Dr. Kemp in October which was complicated by a stricture who presents to the emergency department with difficulty having a bowel movement for 8 days. He says he feels something hard and firm in his rectum and he has some stool that is loose and is dark. Patient denies any abdominal pain or vomiting. He denies any fevers or chills. He thinks this all started when he went in to get his stricture because he was unable to eat or drink for several days. He did try several enemas at home without relief. PFSH Past Medical History Cancer: No Cardiovascular Problems: No Diabetes: No Diminished Hearing: No Endocrine: No Gastrointestinal Disorders: Yes (gerd) Genitourinary: No Hepatitis: No Hiatal Hernia: No Hypertension: No Immune Disorder: No Musculoskeletal: No Neurologic: No Psychiatric: No Respiratory: No Immunizations Current: Yes Sleep Apnea: Yes (wears cpap occassionally) Thyroid Disease: No Past Surgical History Abdominal Surgery: Yes (CHOLECYSTECTOMY, bariatric ) AICD: No Cardiac Surgery: No Cholecystectomy: Yes Ear Surgery: No Endocrine Surgery: No Eye Surgery: No Genitourinary Surgery: No Gynecologic Surgery: No Joint Replacement: No Neurologic Surgery: No Oral Surgery: Yes (wisdom teeth) Pacemaker: No Thoracic Surgery: No Other Surgery: Yes (wisdom teeth removed) Social History Alcohol Use: No Tobacco Use: No Substance Use: No Allergies-Medications (Allergen,Severity, Reaction): Coded Allergies: No Known Allergies (Unverified , 12/03/16) Reported Meds & Prescriptions Reported Meds & Active Scripts Active Phenergan Supp (Promethazine HCl) 25 Mg Supp 25 Mg RECTAL Q6H PRN Zofran Odt (Ondansetron Odt) 8 Mg Tab 8 Mg SL Q8H PRN Reported Protonix (Pantoprazole Sodium) 40 Mg Tab 40 Mg PO DAILY Review of Systems Except as stated in HPI: all other systems reviewed are Neg Physical Exam Narrative GENERAL:Well appearing, no acute distress SKIN: Focused skin assessment warm and dry. HEAD: Atraumatic. Normocephalic. EYES: Pupils equal and round. No injection or drainage. ENT: Moist mucous membranes NECK: Trachea midline. CARDIOVASCULAR: Regular rate and rhythm. No murmur appreciated. RESPIRATORY: Clear to auscultation. Breath sounds equal bilaterally. GASTROINTESTINAL: Abdomen soft, nontender, no rebound or guarding. Firm mass of stool palpable at the very top of the rectal vault, unable to be manually disimpacted MUSCULOSKELETAL: No obvious deformities. NEUROLOGICAL: Awake and alert. No obvious cranial nerve deficits. Moving all extremities. PSYCHIATRIC: Appropriate mood and affect; insight and judgment normal. Data Data Last Documented VS Vital Signs Date Time Temp Pulse Resp B/P (MAP) Pulse Ox O2 Delivery O2 Flow Rate FiO2 12/03/16 12:37 98.7 107 16 141/81 (101) 98 Orders Orders Complete Blood Count With Diff (12/03/16 13:03) Comprehensive Metabolic Panel (12/03/16 13:03) Lipase (12/03/16 13:03) Prothrombin Time / Inr (Pt) (12/03/16 13:03) Act Partial Throm Time (Ptt) (12/03/16 13:03) Urinalysis - C+S If Indicated (12/03/16 13:03) Abdomen, Flat & Upright (12/03/16 ) Mineral Oil Enema (Fleet Mineral Oil Ara (12/03/16 14:15) Urine Culture (12/03/16 13:30) Labs Laboratory Tests Test 12/03/16 13:10 12/03/16 13:30 White Blood Count 6.0 TH/MM3 Red Blood Count 5.58 MIL/MM3 Hemoglobin 15.5 GM/DL Hematocrit 46.5 % Mean Corpuscular Volume 83.3 FL Mean Corpuscular Hemoglobin 27.9 PG Mean Corpuscular Hemoglobin Concent 33.4 % Red Cell Distribution Width 16.0 % Platelet Count 141 TH/MM3 Mean Platelet Volume 11.0 FL Neutrophils (%) (Auto) 75.0 % Lymphocytes (%) (Auto) 15.5 % Monocytes (%) (Auto) 7.6 % Eosinophils (%) (Auto) 1.8 % Basophils (%) (Auto) 0.1 % Neutrophils # (Auto) 4.5 TH/MM3 Lymphocytes # (Auto) 0.9 TH/MM3 Monocytes # (Auto) 0.5 TH/MM3 Eosinophils # (Auto) 0.1 TH/MM3 Basophils # (Auto) 0.0 TH/MM3 CBC Comment DIFF FINAL Differential Comment Prothrombin Time 11.2 SEC Prothromb Time International Ratio 1.0 RATIO Activated Partial Thromboplast Time 28.7 SEC Blood Urea Nitrogen 8 MG/DL Creatinine 0.80 MG/DL Random Glucose 88 MG/DL Total Protein 8.0 GM/DL Albumin 4.0 GM/DL Calcium Level 9.2 MG/DL Alkaline Phosphatase 98 U/L Aspartate Amino Transf (AST/SGOT) 55 U/L Alanine Aminotransferase (ALT/SGPT) 78 U/L Total Bilirubin 1.4 MG/DL Sodium Level 137 MEQ/L Potassium Level 3.0 MEQ/L Chloride Level 96 MEQ/L Carbon Dioxide Level 29.2 MEQ/L Anion Gap 12 MEQ/L Estimat Glomerular Filtration Rate 105 ML/MIN Lipase 424 U/L Urine Color DARK-YELLOW Urine Turbidity HAZY Urine pH 6.0 Urine Specific [place] 1.023 Urine Protein 30 mg/dL Urine Glucose (UA) NEG mg/dL Urine Ketones 40 mg/dL Urine Occult Blood NEG Urine Nitrite NEG Urine Bilirubin NEG Urine Urobilinogen 4.0 MG/DL Urine Leukocyte Esterase TRACE Urine RBC 1 /hpf Urine WBC 16 /hpf Urine Squamous Epithelial Cells 6 /hpf Urine Transitional Epithelial Cells <1 /hpf Urine Hyaline Casts 1 /lpf Urine Mucus MOD /lpf Microscopic Urinalysis Comment CULTURE INDICATED MDM Medical Decision Making Medical Screen Exam Complete: Yes Emergency Medical Condition: Yes Interpretation(s) No leukocytosis Mild hypokalemia Total bilirubin is 1.4 16 white blood cells in the urine Last 24 hours Impressions Abdomen X-Ray 12/03/16 0000 Signed Impressions: Service Date/Time: Saturday, December 03, 2016 13:19 - CONCLUSION: Minimal contrast in sigmoid and rectum otherwise negative.. Yamil Ty MD FACR Differential Diagnosis Constipation, fecal impaction, bowel obstruction, ulcer Narrative Course This is a 46-year-old male who presents to the emergency department with constipation. On exam he has a fecal impaction. I was unable to manually disimpacted. He was given an enema here in the emergency department labs demonstrate incidentally low potassium and a mildly elevated total bilirubin with normal LFTs otherwise. He is not complaining of any abdominal pain or vomiting. X-rays reassuring. I spoke to Dr. العراقي who is on-call for Dr. Renea Blas and he advised stool softener, MiraLAX and milk of magnesia. He was also advised to increased his fluid intake. Patient can follow-up with Dr. Kemp in clinic. [facility] Point of Care Internal Pos. & Neg. Controls: Passed Fecal Specimen Occult Blood: Negative Diagnosis Primary Impression: Fecal impaction Patient Instructions: General Instructions Additional Instructions: If you develop severe or worsening abdominal pain, fever>100.4, persistent vomiting or inability to eat or drink return to the emergency department immediately. Follow up with your primary care physician in 1-2 days for a check-up. Med/Other Pt SpecificInfo: Prescription(s) given Scripts Magnesium Hydroxide Liq (Milk of Magnesia Liq) 400 Mg/5 Ml Susp 30 ML PO DAILY Y for INDIGESTION OR UPSET STOMACH, #1 BOTTLE 0 Refills Prov: Christy Woodall MD 12/03/16 Polyethylene Glycol 3350 Powder (Miralax Powder) 17 Gm Powd 17 GM PO DAILY for Constipation, #1 CAN 0 Refills Mix and dissolve one measuring cap-ful (17 grams) in water or juice. Prov: Christy Woodall MD 12/03/16 Docusate Sodium (Colace) 100 Mg Capsule 1 TAB PO BID for 30 Days Prov: Christy Woodall MD 12/03/16 Disposition: 01 DISCHARGE HOME Condition: Stable Christy Woodall MD Dec 03, 2016 15:12
[2016-12-03 15:18] VITALS: BP 129/68; PULSE 92; RESP 16; O2SAT 98
[2016-12-03] MEDS ORDERED: BACT800T5 PO (15:20)
[2016-12-03] MEDS ORDERED: POTASSIUM CHLORIDE 25 MEQ EFFERVESCENT TAB PO ONE (15:30)
[2016-12-03 15:48] VITALS: BP 139/68
== END 2016-12-03 15:48 | disposition home or self-care (01) ==
LOC: NEPC 12:35
DX: K56.41 Fecal impaction (principal); E87.6 Hypokalemia; K21.9 Gastro-esophageal reflux disease without esophagitis
CPT/HCPCS: 74020; 80053; 81001; 83690; 85025; 85610; 85730; 87086; 99284